=== PATIENT | male | born 1970 ===

== ENCOUNTER → 2018-02-25 21:23 | Outpatient (REF) | payer OTHER, SELFPAY ==
[2018-02-25 22:02] LABS: Alanine Aminotransferase 76 IU/L (21-72); Albumin 4.3 g/dL (3.5-5.0); Albumin Globulin Ratio 1.9 (1.0-2.8); Alkaline Phosphatase 61 U/L (38-126); Aspartate Aminotransferase 70 IU/L (17-59); BUN Creatinine Ratio 13.6 (6-22); Bilirubin Total 0.6 mg/dL (0.2-1.3); Blood Urea Nitrogen 15 mg/dL (9-20); Calcium 9.5 mg/dL (8.4-10.2); Carbon Dioxide 30 mmol/L (22-32); Chloride 101 mmol/L (98-107); Cholesterol 186 mg/dL (140-199); Estimated Glomerular Filt Rate > 60.0 mL/min (>60); Globulin 2.3 g/dL (1.7-4.1); Glucose 90 mg/dL (70-100); HDL Cholesterol 85 mg/dL (40-60); HEMOLYSIS < 15 (0-50); LDL Cholesterol Calculated 88 mg/dL (<100); Potassium 4.5 mmol/L (3.4-5.1); Sodium 142 mmol/L (137-145); Total Protein 6.6 g/dL (6.3-8.2); Triglycerides 67 mg/dL (35-150)
[2018-02-25 22:04] LABS: Add Manual Diff / Slide Review NO; Basophils Percent Auto 0.4 % (0-2); Eosinophils Percent Auto 3.2 % (2-4); Hematocrit 44.9 % (41-53); Hemoglobin 15.1 g/dL (13.5-17.5); Lymphocytes Percent Auto 19.4 % (25-40); Mean Corpuscular HGB Conc 33.7 % (30-36); Mean Corpuscular Volume 86.1 fL (80-100); Monocytes Percent Auto 7.8 % (3-14); Neutrophils Absolute Auto 5800 /uL (3000-5900); Neutrophils Percent Auto 69.2 % (50-75); Platelet Count 219 X10^3/uL (150-400); Red Blood Cell Count 5.21 X10^6/uL (4.5-5.9); Red Cell Distribution Width 13.4 % (11.6-14.8); White Blood Cell Count 8.4 X10^3/uL (4.5-11.0)
[2018-02-25 22:11] LABS: Hemoglobin A1C% w Est Avg Glu 5.5 % (4.0-6.0)
[2018-02-25 22:18] LABS: Free T4, Direct Thyroxine 1.41 ng/dL (0.78-2.19)
[2018-02-25 22:32] LABS: Thyroid Stimulating Hormone 4.53 uIU/mL (0.47-4.68)
== END ==
LOC: LAB 21:23
PROVIDERS: Visit Provider Family Medicine
DX: Z00.00 Encounter for general adult medical examination without abnormal findings (principal); M79.671 Pain in right foot; R73.9 Hyperglycemia, unspecified
CPT/HCPCS: 80053; 80061; 83036; 84439; 84443; 84550; 85025

== ENCOUNTER → 2018-06-23 21:12 | Outpatient (REF) | payer OTHER, SELFPAY ==
[2018-06-23 22:29] LABS: Add Manual Diff / Slide Review NO; Basophils Absolute Auto 100 /uL (0-100); Basophils Percent Auto 0.7 % (0-2); Eosinophils Absolute Auto 200 /uL (0-450); Hematocrit 46.4 % (41-53); Hemoglobin 15.8 g/dL (13.5-17.5); Lymphocytes Absolute Auto 2300 /uL (1100-4500); Lymphocytes Percent Auto 25.5 % (25-40); Mean Corpuscular HGB Conc 34.1 % (30-36); Mean Corpuscular Hemoglobin 29.3 PG (26-34); Mean Corpuscular Volume 85.9 fL (80-100); Monocytes Absolute Auto 800 /uL (0-900); Neutrophils Absolute Auto 5600 /uL (1500-7000); Neutrophils Percent Auto 62.8 % (50-75); Platelet Count 275 X10^3/uL (150-400); Red Cell Distribution Width 14.3 % (11.6-14.8); White Blood Cell Count 8.9 X10^3/uL (4.5-11.0)
[2018-06-25 14:34] LABS: PSA Total 0.31 ng/mL (< 4.01)
[2018-06-26 15:14] LABS: Estradiol 23 pg/mL (< 40)
[2018-06-27 13:08] LABS: Testosterone, Total 273.6; Testosterone,Free 7.1
== END ==
LOC: LAB 21:12
PROVIDERS: Visit Provider Physician Assistant
DX: E29.1 Testicular hypofunction (principal)
CPT/HCPCS: 36415; 82670; 84153; 84154; 84402; 84403; 85025